=== PATIENT | male | born 1955 | race Caucasian/White ===

== ENCOUNTER 2023-07-20 15:05 | Emergency (ER) | payer BC, OTHER ==
[~2023-07-20] VITALS: Ht 165.1 cm; Wt 91.6 kg
[2023-07-20 15:07] VITALS: BP 146/82; PULSE 103; RESP 18; TEMP 97.8; O2SAT 95
[2023-07-20 16:00] VITALS: O2SAT 92
[2023-07-20 16:01] LABS: BASOPHILS # (AUTO) 0.1 K/uL (0.00-0.22); BASOPHILS % (AUTO) 0.6 % (0.0-2.0); EOSINOPHILS # (AUTO) 0.2 K/uL (0-0.4); EOSINOPHILS % (AUTO) 2.5 % (0.0-4.0); HEMATOCRIT 42.4 % (36-52); HEMOGLOBIN 14.1 g/dL (12.0-18.0); LYMPHOCYTES # (AUTO) 2.1 K/uL (2.0-11.5); LYMPHOCYTES % (AUTO) 22.5 % (20.5-51.1); MEAN CORPUSCULAR HEMOGLOBIN 29 pg (27-31); MEAN CORPUSCULAR HGB CONC 33 g/dL (33-37); MEAN CORPUSCULAR VOLUME 87.5 fL (80-94); MONOCYTES % (AUTO) 11.3 % (1.7-9.3); NEUTROPHILS # (AUTO) 5.8 K/uL (1.8-7.7); NEUTROPHILS % (AUTO) 63.1 % (42.2-75.2); PLATELET COUNT (AUTO) 210 K/uL (140-450); RED BLOOD CELL COUNT(AUTO) 4.84 MIL/uL (4.20-6.10); WHITE BLOOD COUNT (AUTO) 9.2 K/uL (4.8-10.8)
[2023-07-20 16:18] LABS: ANION GAP 10.2 (8-16); CALCIUM 7.9 mg/dL (8.5-10.1); CARBON DIOXIDE 29.3 mmol/L (21-32); CREATININE 0.9 mg/dL (0.6-1.3); POTASSIUM 3.5 mmol/L (3.5-5.1)
[2023-07-20 16:22] LABS: INR 1.05 (0.8-1.2); PARTIAL THROMBOPLASTIN TIME 25.3 secs (22-35.6)
[2023-07-20] MEDS ORDERED: LORazepam 0.5 MG TAB PO ONE (17:45)
[2023-07-20] MEDS ORDERED: ALBU0.0912 IH (18:37)
[2023-07-20] MEDS ORDERED: ATA25 PO (18:37)
[2023-07-20 18:47] VITALS: BP 135/82; PULSE 83; RESP 20; TEMP 98; O2SAT 97
== END 2023-07-20 18:47 | disposition home or self-care (01) ==
LOC: MED 15:05
DX: R06.02 Shortness of breath (principal); F41.9 Anxiety disorder, unspecified; I10 Essential (primary) hypertension; Z79.899 Other long term (current) drug therapy
CPT/HCPCS: 36415; 71045; 80048; 83880; 84484; 85025; 85379; 85610; 85730; 93005; 99285